=== PATIENT | female | born 1980 | race American Indian/Alaskan Native ===

== ENCOUNTER 2019-05-18 16:18 | Emergency (ER) | payer MEDICARE, MEDICAID ==
--- NOTE | 2019-05-18 16:49 | Event Note ---
ED Screening Note ED Screening Note: states that she had a fever began a week ago [facility] diagnosed with [facility], had a CXR showed left lower lobe PNA pt is taking azithromycin and mucinex states she has SOB and chest tightness did give her an inhaler +smoker allergy to codeine, tylenol, percocet PMHx lymphedema This initial assessment/diagnostic orders/clinical plan/treatment(s) is/are subject to change based on patients health status, clinical progression and re- assessment by fellow clinical providers in the ED. Further treatment and workup at subsequent clinical providers discretion. Patient/guardian urged not to elope from the ED as their condition may be serious if not clinically assessed and managed. Initial orders include: labs, CXR, neb, steroids, abx
[2019-05-18] MEDS ORDERED: IPRATROPIUM 0.02% NEBU 2.5 ML IH ONE (16:50)
[2019-05-18] MEDS ORDERED: ALBUTEROL 2.5 MG/3 ML NEBU IH ONE ×2 (16:50→18:57)
--- NOTE | 2019-05-18 17:35 | XRay Report ---
CHEST 2 VIEWS INDICATION / CLINICAL INFORMATION: cough, wheezing. COMPARISON: None available. FINDINGS: SUPPORT DEVICES: None. HEART / MEDIASTINUM: No significant abnormality. LUNGS / PLEURA: There is small area of density just lateral left hilum. This appears to be a small ar ea of pneumonia The remaining lungs are clear. No associated effusion. No pneumothorax. ADDITIONAL FINDINGS: No significant additional findings. IMPRESSION: 1. Minimal left upper lobe pneumonia Signer Name: Jack Singh MD Signed: 05/18/2019 5:31 PM Workstation Name: [id number]
[2019-05-18 17:47] LABS: Basophils % (Auto) 0.5 % (0.0-1.8); Eosinophils # (Auto) 0.1 K/mm3 (0.0-0.4); Eosinophils % (Auto) 2.6 % (0.0-4.3); Hemoglobin 13.3 gm/dl (10.1-14.3); Lymphocytes # (Auto) 1.7 K/mm3 (1.2-5.4); Lymphocytes % (Auto) 38.4 % (13.4-35.0); Mean Corpuscular HGB Conc 35 % (30-34); Mean Corpuscular Volume 93 fl (79-97); Monocytes # (Auto) 0.6 K/mm3 (0.0-0.8); Monocytes % (Auto) 14.3 % (0.0-7.3); Platelet Count 237 K/mm3 (140-440); Red Cell Distribution Width 13.2 % (13.2-15.2)
[2019-05-18 17:58] LABS: BUN/Creatinine Ratio 9; Blood Urea Nitrogen 7 mg/dL (7-17); Calcium 9.2 mg/dL (8.4-10.2); Hemolysis Index 35
--- NOTE | 2019-05-18 18:52 | Emergency Department Report ---
<VERNA FUJuan Carlos Slade - Last Filed: 05/18/19 19:42> ED Shortness of Breath HPI - General Chief Complaint: Dyspnea/Respdistress Stated Complaint: POSS PNEUMONIA/JOSEPHINE/CHEST TIGHT Time Seen by Provider: 05/18/19 16:46 Source: patient Mode of arrival: Ambulatory Limitations: No Limitations - History of Present Illness Initial Comments: 38-year-old -[place] female presents to the emergency room he room stating that she was having chest tightness increased cough and shortness of breath. Patient reports that she was diagnosed with left upper lobe pneumonia 3 days ago at [facility] Patient states that she's been placed on azithromycin. Patient reports she is not feeling any better. MD Complaint: shortness of breath - Related Data Previous Rx's Medication Instructions Recorded Last Taken Type ALBUTEROL Inhaler (OR & NICU) 2 puff IH QID PRN #8.5 gram 05/18/19 Unknown Rx [ProAir HFA Inhaler] Fluconazole [Diflucan TAB] 200 mg PO QDAY #1 tablet 05/18/19 Unknown Rx levoFLOXacin [Levaquin TAB] 500 mg PO QDAY 5 Days #5 tablet 05/18/19 Unknown Rx Allergies Allergy/AdvReac Type Severity Reaction Status Date / Time ketorolac [From Toradol] Allergy Unknown Unknown Verified 05/18/19 17:16 acetaminophen [From Tylenol] Allergy Unknown Verified 05/18/19 17:16 aspirin Allergy Unknown Verified 05/18/19 17:16 codeine Allergy Unknown Verified 05/18/19 17:16 oxycodone [From Percocet] Allergy Unknown Verified 05/18/19 17:16 ED Past Medical Hx - Past Medical History Previous Medical History?: Yes Additional medical history: Lymphodema, left leg - Surgical History Past Surgical History?: Yes Hx Appendectomy: Yes Additional Surgical History: C section - Social History Smoking Status: Never Smoker Substance Use Type: None - Medications Home Medications: Home Medications Medication Instructions Recorded Confirmed Last Taken Type ALBUTEROL Inhaler (OR & NICU) 2 puff IH QID PRN #8.5 gram 05/18/19 Unknown Rx [ProAir HFA Inhaler] Fluconazole [Diflucan TAB] 200 mg PO QDAY #1 tablet 05/18/19 Unknown Rx levoFLOXacin [Levaquin TAB] 500 mg PO QDAY 5 Days #5 tablet 05/18/19 Unknown Rx ED Physical Exam - General Limitations: No Limitations General appearance: alert, in no apparent distress - Head Head exam: Present: atraumatic, normocephalic - Eye Eye exam: Present: normal appearance - ENT ENT exam: Present: mucous membranes moist - Neck Neck exam: Present: normal inspection - Respiratory Respiratory exam: Present: wheezes, rhonchi - Cardiovascular Cardiovascular Exam: Present: regular rate - Extremities Exam Extremities exam: Present: normal inspection - Back Exam Back exam: Present: normal inspection - Neurological Exam Neurological exam: Present: alert, oriented X3 - Psychiatric Psychiatric exam: Present: normal affect, normal mood - Skin Skin exam: Present: warm, dry, intact, normal color. Absent: rash ED Medical Decision Making - Lab Data Result diagrams: 05/18/19 17:13 05/18/19 17:13 Laboratory Tests 05/18/19 05/18/19 17:13 17:13 WBC 4.5 RBC 4.10 Hgb 13.3 Hct 38.0 MCV 93 MCH 33 H MCHC 35 H RDW 13.2 Plt Count 237 Lymph % (Auto) 38.4 H Sur[place] % (Auto) 14.3 H Eos % (Auto) 2.6 Baso % (Auto) 0.5 Lymph # 1.7 [place] # 0.6 Eos # 0.1 Baso # 0.0 Seg Neutrophils % 44.2 Seg Neutrophils # 2.0 Sodium 138 Potassium 3.6 Chloride 102.1 Carbon Dioxide 23 Anion Gap 17 BUN 7 Creatinine 0.8 Estimated GFR > 60 BUN/Creatinine Ratio 9 Glucose 108 H Calcium 9.2 - Radiology Data Radiology results: report reviewed Patient: LUPILLO SKY MR#: [id number] : 1980 Acct:[id number] Age/Sex: 38 / F ADM Date: 05/18/19 Loc: ED Attending Dr: Ordering Physician: RHEA FERRIS Date of Service: 05/18/19 Procedure(s): XR chest routine 2V Accession Number(s): [id number] cc: RHEA FERRIS Fluoro Time In Minutes: CHEST 2 VIEWS INDICATION / CLINICAL INFORMATION: cough, wheezing. COMPARISON: None available. FINDINGS: SUPPORT DEVICES: None. HEART / MEDIASTINUM: No significant abnormality. LUNGS / PLEURA: There is small area of density just lateral left hilum. This appears to be a small area of pneumonia The remaining lungs are clear. No associated effusion. No pneumothorax. ADDITIONAL FINDINGS: No significant additional findings. IMPRESSION: 1. Minimal left upper lobe pneumonia Signer Name: Jack Singh MD Signed: 05/18/2019 5:31 PM Workstation Name: [id number] Transcribed By: FOREST Dictated By: Jack Singh MD Electronically Authenticated By: Jack Singh MD Signed Date/Time: 05/18/191730 DD/ 28 TD/TT: ED Disposition Clinical Impression: Left upper lobe pneumonia Qualifiers: Pneumonia type: due to unspecified organism Qualified Code(s): J18.9 - Pneumonia, unspecified organism Disposition: - TO HOME OR SELFCARE Is pt being admited?: No Does the pt Need Aspirin: No Condition: Stable Instructions: Bacterial Pneumonia (ED) Prescriptions: Fluconazole [Diflucan TAB] 200 mg PO QDAY #1 tablet levoFLOXacin [Levaquin TAB] 500 mg PO QDAY 5 Days #5 tablet ALBUTEROL Inhaler (OR & NICU) [ProAir HFA Inhaler] 2 puff IH QID PRN #8.5 gram PRN Reason: Shortness Of Breath Referrals: [facility] [Outside] - 3-5 Days [facility] [Outside] - 3-5 Days Forms: Work/School Release Form(ED) <MARIA R BREWSTER - Last Filed: 05/20/19 02:13> ED Review of Systems ROS: Stated complaint: POSS PNEUMONIA/JOSEPHINE/CHEST TIGHT Other details as noted in HPI ED Course Vital Signs 05/18/19 05/18/19 17:49 20:15 Temperature 98.9 F Pulse Rate 99 H 94 H Respiratory 16 18 Rate Blood Pressure 133/65 Blood Pressure 126/66 [Right] O2 Sat by Pulse 100 98 Oximetry ED Medical Decision Making - Lab Data Result diagrams: 05/18/19 17:13 05/18/19 17:13 Critical care attestation.: If time is entered above; I have spent that time in minutes in the direct care of this critically ill patient, excluding procedure time. ED Disposition Is pt being admited?: No
[2019-05-18 20:21] VITALS: BP 126/66
== END 2019-05-18 20:15 | disposition home or self-care (01) ==
LOC: ED 16:18
DX: J18.1 Lobar pneumonia, unspecified organism (principal); Z88.6 Allergy status to analgesic agent; Z88.5 Allergy status to narcotic agent; Z88.8 Allergy status to other drugs, medicaments and biological substances; Z90.49 Acquired absence of other specified parts of digestive tract
CPT/HCPCS: 36415; 71046; 80048; 85025; 94640